=== PATIENT | female | born 1965 | race Caucasian/White ===

== ENCOUNTER 2016-09-28 17:31 | Emergency (ER) ==
[2016-09-28 17:59] LABS: MANUAL DIFF NEEDED? NO
[2016-09-28 18:01] LABS: BASO% 0.6 % (0.0-0.8); EOS# 0.14 X1000 (0.0-0.7); EOS% 2.7 % (0.0-10.0); HEMATOCRIT 38.5 % (37.0-47.0); HEMOGLOBIN 13.5 g/dL (12.0-16.0); LYMPH# 2.03 X1000 (1.2-3.4); MCH 29.3 PG (27-31); MCHC 35.1 g/dL (33-37); MCV 83.5 FL (81-99); MONO# 0.42 X1000 (0.11-0.59); MONO% 8.1 % (1.7-9.3); MPV 9.1 FL (7.4-10.4); NEUT% 49.6 % (42.2-75.2); PLT 259 X1000 (130-400); RBC 4.61 XMIL (4.2-5.4)
[2016-09-28 18:14] LABS: URINE CULTURE NEEDED? NO; URINE MICRO REVIEW NEEDED? NO; URINE SOURCE CLEAN CATCH
[2016-09-28 18:19] LABS: BILIRUBIN URINE NEGATIVE (NEGATIVE); BLOOD URINE NEGATIVE (NEGATIVE); COLOR STRAW; GLUCOSE URINE NEGATIVE (NEGATIVE); LEUKOCYTES URINE NEGATIVE (NEGATIVE); NITRITE URINE NEGATIVE (NEGATIVE); PH URINE 6.5; PROTEIN URINE NEGATIVE (NEGATIVE); TURBIDITY URINE CLEAR (CLEAR); UROBILINOGEN URINE NORMAL (NORMAL)
[2016-09-28 18:20] LABS: UR EPITHELIAL CELLS <10 /HPF (<10); URINE BACTERIA NEGATIVE /HPF; URINE RBC <10 /HPF (<10); URINE WBC <10 /HPF (<10)
[2016-09-28 18:32] LABS: AGAP 14; ALBUMIN 4.4 g/dL (3.5-5.0); ALKALINE PHOSPHATASE 92 U/L (32-104); AMYLASE 31 U/L (20-200); BUN 10 mg/dL (8-22); CALCIUM 9.2 mg/dL (8.8-10.2); CHLORIDE 102 mmol/L (98-107); COSMO 280; GOT 18 U/L (10-30); GPT 23 U/L (10-36); LIPASE 25 U/L (13-60); POTASSIUM 3.9 mmol/L (3.5-5.1); SODIUM 141 mmol/L (136-145); TCO2 25 mmol/L (25-35); TOTAL BILIRUBIN 0.39 mg/dL (0.20-1.00); TOTAL PROTEIN 7.3 g/dL (6.3-8.3)
--- NOTE | 2016-09-28 18:36 | PROVIDER DOCUMENTATION ---
HPI-Abdominal Pain/GI Problem - General Source: patient - History of Present Illness-ABD Nature of Presenting Problems: 50 year old F presents to the ED with a cc of RLQ ABD pain with an onset of this afternoon. Pt denies fever, chills, nausea, vomiting, or diarrhea. Abdominal Pain Onset Location: reports: RLQ Pain Radiation: reports: no radiation Quality of Pain: reports: aching Severity in ED: reports: moderate Onset/Duration: reports: this afternoon Timing: reports: still present Activities at Onset: reports: none Modifying Factors: improves with: nothing Bruising or Bleeding Gums?: No Similar Symptoms Previously?: No Recently seen or treated by another doctor?: No <Ann Pugh - Last Filed: 09/28/16 18:46> <Marimar Lopez - Last Filed: 09/28/16 22:08> - General Chief Complaint: Abdominal Pain Stated Complaint: LOWER RIGHT ABD PAIN Time Seen by Provider: 09/28/16 18:26 Allergies/Adverse Reactions: Patient Allergies Allergy/AdvReac Type Severity Reaction Status Date / Time No Known Allergies Allergy Verified 09/28/16 20:08 Home Medications: Home Medication List Medication Instructions Recorded Confirmed Last Taken Type Clonazepam 0.5 mg PO HS 06/02/16 09/28/16 09/27/16 History Trazodone [Desyrel] 50 mg PO QHS 06/02/16 09/28/16 09/27/16 History Phenytoin [Dilantin] 100 mg PO TID #90 capsule 07/24/16 09/28/16 2 Weeks Ago Rx Dicyclomine [Bentyl] 10 mg PO TID AC #30 capsule 09/28/16 Unknown Rx Famotidine [Pepcid] 20 mg PO DAILY #20 tablet 09/28/16 Unknown Rx Ondansetron Odt [Zofran 8Mg Odt] 8 mg PO Q8H PRN PRN #20 tablet 09/28/16 Unknown Rx Review of Systems - Adult - REVIEW OF SYSTEMS - ADULT Constitutional: denies: chills, fever Eyes: reports: no symptoms reported Ears, Nose, Mouth & Throat: reports: no symptoms reported Cardiovascular: denies: chest pain, orthopnea Respiratory: denies: cough, shortness of breath Gastrointestinal: reports: abdominal pain. denies: constipation, diarrhea, nausea, vomiting Genitourinary: denies: dysuria, hematuria Musculoskeletal: denies: back pain, muscle aches, muscle weakness Integumentary: denies: skin sores/ulcer, skin thickening Neurological: reports: no symptoms reported Psychiatric: reports: no symptoms reported Endocrine: reports: no symptoms reported Hematologic/Lymphatic: reports: no symptoms reported Allergic/Immunologic: reports: no symptoms reported All Other Systems: Reviewed and Negative <nAn Pugh - Last Filed: 09/28/16 18:46> Past History - Adult - PAST MEDICAL HISTORY-ADULT Review of Records: reports: Nursing Assessment Review, Medications Reviewed Major Childhood Illnesses: reports: denies history Cardiovascular: reports: A-Fib, HTN, heart valve problem (MVP) Respiratory: reports: denies history Gastrointestinal: reports: GERD Obstetrical/Gynecological: reports: denies history Genitourinary: reports: kidney stones Musculoskeletal: reports: denies history Neurological: reports: CVA (possible), Seizures/Epilepsy Psychiatric: reports: anxiety, depression Endocrine/Immune: reports: other (diffuse lymphadenopathy with suspected underlying malignant status post bone marrow biopsy) Other Conditions: reports: other (deep vein thrombosis) - PRIOR SURGERIES/PROCEDURES Surgical/Procedure History: reports: cholecystectomy (bladder sling; cardiac cath without stent; lumpectomy), hysterectomy, other (bladder sling; cardiac cath without stent) - IMMUNIZATION STATUS Childhood Immunizations: See Nurse Assessment Flu Vaccine: See Nurse Assessment - FAMILY HISTORY Family History: reviewed, not pertinent - SOCIAL HISTORY Smoking: non-smoker Substance Use: none/never Alcohol Use Frequency: never <Ann Pugh - Last Filed: 09/28/16 18:46> Physical Exam-General - PHYSICAL EXAM-ADULT Initial Vital Signs Reviewed: Yes - CONSTITUTIONAL General Appearance: appears well, alert, no apparent distress - RESPIRATORY Respiratory: chest non-tender, lungs clear, normal breath sounds - CARDIOVASCULAR Cardiovascular: normal peripheral pulses, regular rate, rhythm, no edema - GASTROINTESTINAL (ABDOMEN) Abdominal Exam: normal bowel sounds, soft, tenderness (RUQ), Boland's sign, obturator sign, other (negative heal tap) - MUSCULOSKELETAL Extremity: normal inspection - SKIN Integumentary: normal color, normal turgor, warm/dry - PSYCHIATRIC Psych/Mental Status: normal mood/affect, normal thought content, normal thought process, oriented x 3 <Ann Pugh - Last Filed: 09/28/16 18:46> Progress - EKG 1 Time of EKG reading by physician:: 17:44 EKG Read and Signed by:: Brooke Childers EKG Interpretation (*Must complete 3 of following elements*): Abnormal Rate: 122 Rhythm: sinus tachycardia ST Wave: non-specific ST changes <Ann Pugh - Last Filed: 09/28/16 18:46> - PLAN OF CARE/RESULTS Progress/Plan/Lab Results: Vital Signs Temp Pulse Resp BP Pulse Ox 09/28/16 17:37 98.5 F 137 H 18 185/123 100 No Known Allergies Allergy (Verified 09/28/16 20:08) Clonazepam 0.5 mg PO HS 06/02/16 Trazodone [Desyrel] 50 mg PO QHS 06/02/16 Phenytoin [Dilantin] 100 mg PO TID #90 capsule 07/24/16 I&O 09/27/16 09/28/16 09/29/16 06:59 06:59 06:59 Output Total 60 Balance -60 Laboratory 09/28/16 09/28/16 09/28/16 17:54 17:51 17:51 WBC 5.20 RBC 4.61 Hgb 13.5 Hct 38.5 MCV 83.5 MCH 29.3 MCHC 35.1 RDW Std Deviation 11.9 Plt Count 259 MPV 9.1 Immature Gran % (Auto) 0.0 Neut % (Auto) 49.6 Lymph % (Auto) 39.0 Christian % (Auto) 8.1 Eos % (Auto) 2.7 Baso % (Auto) 0.6 Immature Gran # (Auto) 0.00 Neut # (Auto) 2.58 Lymph # (Auto) 2.03 Christian # (Auto) 0.42 Eos # (Auto) 0.14 Baso # (Auto) 0.03 Sodium 141 Potassium 3.9 Chloride 102 Carbon Dioxide 25 Anion Gap 14 BUN 10 Creatinine 0.8 Estimated GFR/1.73 m2 > 60 BUN/Creatinine Ratio 13 Glucose 96 Calculated Osmolality 280 Calcium 9.2 Total Bilirubin 0.39 AST 18 ALT 23 Alkaline Phosphatase 92 Total Protein 7.3 Albumin 4.4 Globulin 2.9 Albumin/Globulin Ratio 1.5 Amylase 31 Lipase 25 Urine Source CLEAN CATCH Urine Color STRAW Urine Turbidity CLEAR Urine pH 6.5 Ur Specific [place] 1.010 Urine Protein NEGATIVE Ur Glucose (Stick) NEGATIVE Ur Ketones (Stick) NEGATIVE Urine Blood NEGATIVE Urine Nitrite NEGATIVE Urine Bilirubin NEGATIVE Urobilinogen Dipstick NORMAL Urine Leukocytes NEGATIVE Urine WBC (Auto) <10 Urine RBC (Auto) <10 U Epithel Cells (Auto) <10 Urine Bacteria (Auto) NEGATIVE Orders Category Date Time Status Saline Loc NOW Care 09/28/16 18:[address] ABD/PELVIS W/ IV CONT ONLY [CT] Stat Exams 09/28/16 18:46 Taken AMYLASE [CHEM] Stat Lab 09/28/16 17:51 Completed CBC WITH ELECTRONIC DIFF [HEME] Stat Lab 09/28/16 17:51 Completed COMPREHENSIVE METABOLIC PANEL [CHEM] Stat Lab 09/28/16 17:51 Completed LIPASE [CHEM] Stat Lab 09/28/16 17:51 Completed UA Reflex [URINALYSIS W/POSS RFLX CULT] [URINALYSIS] Lab 09/28/16 17:54 Completed Stat Morphine Med 09/28/16 20:18 Discontinued 4 mg IV NOW ONE Ondansetron [Zofran] Med 09/28/16 20:18 Discontinued 8 mg IV NOW ONE EKG [EKG] Stat Ther 09/28/16 17:40 Ordered - CT/MRI 1 CT Study: Abdomen, Pelvis Impression: Normal (Choleycystectomy. No bowel obstruction, no abscess, no inflammation about the cecum. Hysterectomy per Dr. Rea, radiology) <Marimar Lopez - Last Filed: 09/28/16 22:08> Departure <Ann Pugh - Last Filed: 09/28/16 18:46> - Departure Time of Disposition Order: 21:57 Certified Medical Emergency: Emergent <Marimar Lopez - Last Filed: 09/28/16 22:08> - Departure DIAGNOSIS: Abdominal pain Qualifiers: Abdominal location: right lower quadrant Qualified Code(s): R10.31 - Right lower quadrant pain Disposition: HOME 01 Condition: Stable Additional Instructions: Follow up with Dr. Bermudez, GI ED Follow Up Instructions: You have been treated by a care provider in the Emergency Department. These instructions are being provided to you so you can have an understanding of how to care for yourself upon discharge. Upon discharge from the Emergency Department, you are responsible for making arrangements for follow-up care by a physician of your choice. Take all prescribed medications as directed. Return to the Emergency Department immediately for any new or worsening symptoms. You may call the Physician Referral phone number at [phone] to obtain a list of Physicians who are taking new patients. Prescriptions: Dicyclomine [Bentyl] 10 mg PO TID AC #30 capsule Famotidine [Pepcid] 20 mg PO DAILY #20 tablet Ondansetron Odt [Zofran 8Mg Odt] 8 mg PO Q8H PRN PRN #20 tablet PRN Reason: Nausea Referrals: Uziel Holguin [Primary Care Provider] - Jamil Bermudez MD [STAFF PHYSICIAN] - Attestation - Scribe Verification/Attestation Scribe:: Ann Pugh Acting as Scribe for:: Marimar Lopez Scribe documention review:: This chart was documented by a scribe and accurately reflects the service the provider performed and the decisions made by the provider. <Ann Pugh - Last Filed: 09/28/16 18:46> Physician Attestation - Physician Attestation I, the provider, attest to the following statement:: Marimar Lopez Physician documentation Attestation:: This documentation recorded by the scribe accurately reflects the service I personally performed and the decisions made by me. <Ann Pugh - Last Filed: 09/28/16 18:46>
[2016-09-28] MEDS ORDERED: ZOFRAN IV ONE (20:18)
[2016-09-28] MEDS ORDERED: MORPHINE IV ONE (20:18)
[2016-09-28 22:19] VITALS: BP 119/85
--- NOTE | 2016-09-29 00:56 | Diag Imaging Result Document ---
PROCEDURE NAME: CT ABD/PELVIS W/ IV CONT ONLY - 09/28/2016 STUDY: CT abdomen and pelvis with intravenous contrast. COMPARISON: Compared to 04/08/2015. PROTOCOL: Dose reduction protocol. The gallbladder has been removed. There is mild fatty infiltration of the liver. There are several tiny hypodense hepatic lesions believed to be cysts. Normal spleen, pancreas, and adrenal glands. Normal enhancement of the kidneys. No hydronephrosis. Normal aorta. No bowel obstruction. I do not definitely identify the appendix. However, there are no inflammatory changes about the cecum. No abscess. No free air. The uterus has been removed. No adnexal mass. The urinary bladder is moderately distended and appears normal. IMPRESSION: 1. Cholecystectomy. 2. Mild fatty infiltration of the liver. 3. No inflammation about the cecum. No abscess. 4. No bowel obstruction. 5. Hysterectomy. A preliminary report was given at 9:47 p.m.
--- NOTE | 2016-09-29 07:43 | EKG Report ---
Test Performed on : 09/28/2016 5:44:21 PM Test Reason : elevated hr Blood Pressure : / mmHG Vent. Rate : 122 BPM Atrial Rate : 122 BPM P-R Int : 134 ms QRS Dur : 070 ms QT Int : 316 ms P-R-T Axes : 074 057 039 degrees QTc Int : 450 ms Sinus tachycardia. Nonspecific ST abnormality Abnormal ECG When compared with ECG of 24-JUL-2016 16:49, ST now depressed in Anterior leads Unconfirmed Result
== END 2016-09-28 22:19 | disposition home or self-care (01) ==
LOC: ED 17:31
DX: R10.31 Right lower quadrant pain (principal); K76.0 Fatty (change of) liver, not elsewhere classified; R94.31 Abnormal electrocardiogram [ECG] [EKG]; R10.811 Right upper quadrant abdominal tenderness; I10 Essential (primary) hypertension; R56.9 Unspecified convulsions; F41.9 Anxiety disorder, unspecified; F32.9 Major depressive disorder, single episode, unspecified; Z79.899 Other long term (current) drug therapy; Z87.442 Personal history of urinary calculi
CPT/HCPCS: 74177; 80053; 81001; 82150; 83690; 85025; 93005; J2270; J2405; Q9967

== ENCOUNTER 2019-11-22 19:36 | Observation (INO) ==
--- NOTE | 2019-11-22 20:16 | Diag Imaging Result Doc PS360 ---
EXAM: CT HEAD W/O CONTRAST HISTORY: dizziness, weakness TECHNIQUE: CT head without contrast COMPARISON: 04/18/2019 FINDINGS: No parenchymal hemorrhage. No epidural or subdural hematoma. No subarachnoid hemorrhage. No mass identified on this noncontrasted exam. No hydrocephalus. No sinus opacification. IMPRESSION: No hemorrhage. Negative brain CT without contrast. This exam was performed using automated exposure control, adjustment of mA or kV according to patient size, and/or use of iterative reconstruction technique. Electronically signed by Supa Rea 11/22/2019 8:13 PM
--- NOTE | 2019-11-22 20:16 | Diag Imaging Result Doc PS360 ---
EXAM: CHEST-2 VIEWS HISTORY: dizziness TECHNIQUE: Two views COMPARISON: 04/18/2019 FINDINGS: The lungs are well expanded. The heart is not enlarged. The vessels are not distended. There are no infiltrates. No pleural effusions. IMPRESSION: No acute abnormality. Electronically signed by Supa Rea 11/22/2019 8:14 PM
[2019-11-22 21:00] LABS: BASO# 0.07 X1000 (0.0-0.2); BASO% 1.1 % (0.0-0.8); EOS# 0.52 X1000 (0.0-0.7); EOS% 8.4 % (0.0-10.0); HEMATOCRIT 40.3 % (37.0-47.0); HEMOGLOBIN 13.3 g/dL (12.0-16.0); LYMPH# 2.36 X1000 (1.2-3.4); LYMPH% 38.1 % (20.5-51.1); MCH 27.5 PG (27-31); MCV 83.3 FL (81-99); MONO# 0.54 X1000 (0.11-0.59); MONO% 8.7 % (1.7-9.3); MPV 9.2 FL (7.4-10.4); NEUT% 43.7 % (42.2-75.2); PLT 288 X1000 (130-400); RBC 4.84 XMIL (4.2-5.4); RDW 12.8 % (11.5-14.5); WBC 6.19 X1000 (4.8-10.8)
[2019-11-22 21:05] LABS: ALB/GLOB RATIO 1.6; ALBUMIN 4.1 g/dL (3.5-5.0); CALCIUM 9.2 mg/dL (8.8-10.2); POTASSIUM 3.9 mmol/L (3.5-5.1); TOTAL BILIRUBIN 0.25 mg/dL (0.20-1.00); TOTAL PROTEIN 6.7 g/dL (6.3-8.3)
--- NOTE | 2019-11-22 22:09 | PROVIDER DOCUMENTATION ---
This chart was entered by Rachna Abdul Scribe, acting as scribe for Delmi Ferrari MD. HPI-General Adult - General Stated Complaint: HEADACH/CONFUSED/V Time Seen by Provider: 11/22/19 19:46 Source: patient Allergies/Adverse Reactions: Patient Allergies Allergy/AdvReac Type Severity Reaction Status Date / Time No Known Allergies Allergy Verified 04/18/19 14:19 Home Medications: Home Medication List Medication Instructions Recorded Confirmed Last Taken Type Clonazepam [Klonopin] 1 mg PO QHS 03/04/18 08/30/19 04/17/19 History Trazodone [Desyrel] 150 mg PO QHS 30 Days #30 tab 07/26/18 08/30/19 04/17/19 Rx Escitalopram Oxalate [Lexapro] 10 mg PO QHS 04/18/19 08/30/19 04/17/19 History Propranolol HCl 10 mg PO QAM 04/18/19 08/30/19 04/18/19 History Cyclobenzaprine [Flexeril] 10 mg PO TID #20 tab 08/30/19 Unknown Rx Ibuprofen [Motrin] 800 mg PO Q8H PRN PRN #20 tab 08/30/19 Unknown Rx - History of Present Illness -Gen Adult Nature of Presenting Problems: [id number] presents to ED with stroke-like 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 She states she has had a headache all day and has felt confused. Her told her she was disoriented and asking him questions; she does not remember doing this. She states she vomited, is dizzy, and was having difficulty walking in a straight line. She has a hx of HTN. She was slightly tearful upon exam. Severity: reports: mild Onset/Duration: reports: 1 hour ago Timing: reports: resolved prior to arrival Context/Activities at Onset: reports: light activity Modifying Factors: improves with: nothing Associated Symptoms: reports: dizziness, headaches, vomiting, trouble walking (patient states difficulty walking in a straight line) Similar Symptoms Previously?: No Recently seen or treated by another doctor?: No Review of Systems - Adult - REVIEW OF SYSTEMS - ADULT Constitutional: denies: chills, fever Cardiovascular: denies: chest pain, palpitations Respiratory: denies: cough, shortness of breath Gastrointestinal: reports: see HPI, vomiting. denies: abdominal pain Musculoskeletal: denies: back pain, neck pain Past History - Adult - PAST MEDICAL HISTORY-ADULT Review of Records: reports: Nursing Assessment Review, Medications Reviewed, Social history reviewed & non-contributory. Major Childhood Illnesses: reports: denies history Cardiovascular: reports: A-Fib, HTN, heart valve problem (MVP), hyperlipidemia Respiratory: reports: denies history Gastrointestinal: reports: GERD Obstetrical/Gynecological: reports: denies history Genitourinary: reports: kidney stones Musculoskeletal: reports: denies history Neurological: reports: CVA (possible), Seizures/Epilepsy Psychiatric: reports: anxiety, depression Endocrine/Immune: reports: other (diffuse lymphadenopathy with suspected underlying malignant status post bone marrow biopsy) Other Conditions: reports: other (deep vein thrombosis) - PRIOR SURGERIES/PROCEDURES Surgical/Procedure History: reports: cholecystectomy (bladder sling; cardiac cath without stent; lumpectomy), hysterectomy, breast (lumpectomy), other (bladder sling; cardiac cath without stent) - IMMUNIZATION STATUS Childhood Immunizations: See Nurse Assessment Flu Vaccine: See Nurse Assessment - FAMILY HISTORY Family History: reviewed, not pertinent - SOCIAL HISTORY Smoking: cigarettes, less than 1 pack/day Provider spent 3-5 mins advising pt. on dangers of tobacco.: Discussed manners to quit use, and f/u contacts for add'l counseling. Living Situation: family Physical Exam-General - PHYSICAL EXAM-ADULT Initial Vital Signs Reviewed: Yes - CONSTITUTIONAL General Appearance: appears well, alert, no apparent distress - EYES Eyes: PERRL/EOMI, pink conjunctivae - HEAD, EARS, NOSE, MOUTH & THROAT HENMT: normocephalic/atraumatic, moist mucous membranes, normal ENT inspection - NECK Neck: non-tender, full range of motion, supple, normal inspection - RESPIRATORY Respiratory: chest non-tender, lungs clear, normal breath sounds - CARDIOVASCULAR Cardiovascular: normal peripheral pulses, regular rate, rhythm, no edema, no gallop, no murmur - CHEST (BREASTS) Chest/Breast: deferred - GASTROINTESTINAL (ABDOMEN) Abdominal Exam: normal bowel sounds, non tender, soft. negative: guarding, rebound - GENITOURINARY Female Genitalia/Pelvic Exam: deferred Rectal Exam: deferred Hemoccult Exam: deferred - MUSCULOSKELETAL Back Exam: normal inspection Extremity: normal range of motion, non-tender, normal inspection, no pedal edema , no calf tenderness - SKIN Integumentary: normal color, normal turgor, warm/dry - NEUROLOGIC Neurologic: chief controller II-XII nml as tested, grossly normal - PSYCHIATRIC Psych/Mental Status: normal mood/affect, normal thought content, normal thought process, oriented x 3, tearful (slightly) Progress - PLAN OF CARE/RESULTS Progress/Plan/Lab Results: Orders Category Date Time Status CHEST-2 VIEWS [RAD] Stat Exams 11/22/19 19:[address] HEAD W/O CONTRAST [CT] Stat Exams 11/22/19 19:47 Ordered CBC WITH ELECTRONIC DIFF [HEME] Stat Lab 11/22/19 19:46 Uncollected CK PROFILE [SP CHEM] Stat Lab 11/22/19 19:46 Uncollected COMPREHENSIVE METABOLIC PANEL [CHEM] Stat Lab 11/22/19 19:47 Uncollected TROPONIN T HIGH SENSITIVITY Stat Lab 11/22/19 19:47 Uncollected Result Diagrams: 11/22/19 20:15 11/22/19 20:15 - REASSESSMENT Reassessment #1 Time Reassessed: 20:15 Status: other (NIH stroke scale score 2 at initial evaluation. Not a candidate for TPA due to minor and rapidly resolving symptoms.) Reassessment #2 Time Reassessed: 22:08 Status: improving - EKG 1 Time of EKG reading by physician:: 19:53 EKG Read and Signed by:: Delmi Ferrari EKG Interpretation (*Must complete 3 of following elements*): Abnormal Rate: 100 Rhythm: NSR Remer: normal QRS: normal ST Wave: non-specific ST changes - XRAY 1 XRAY: Bilateral XRAY Study: Chest Impression: See EMR Report (FINDINGS: The lungs are well expanded. The heart is not enlarged. The vessels are not distended. There are no infiltrates. No pleural effusions. IMPRESSION: No acute abnormality. Electronically signed by Supa Rea 11/22/2019 8:14 PM) - CT/MRI 1 CT Study: Head Impression: See EMR Report (FINDINGS: No parenchymal hemorrhage. No epidural or subdural hematoma. No subarachnoid hemorrhage. No mass identified on this noncontrasted exam. No hydrocephalus. No sinus opacification. IMPRESSION: No hemorrhage. Negative brain CT without contrast. This exam was performed using automated exposure control, adjustment of mA or kV according to patient size, and/or use of iterative reconstruction technique. Electronically signed by Supa Rea 11/22/2019 8:13 PM) - CONSULTS/PCP/HOSPITALIST Notification #1 *Consult/PCP/Hospitalist*: Dr. Valdez Time Discussed: 22:08 Consult Disposition: Admit Departure - Departure Date of Disposition Decision: 11/22/19 Time of Disposition Decision: 22:08 DIAGNOSIS: TIA (transient ischemic attack) Disposition: ADMITTED INPATIENT 09 Certified Medical Emergency: Emergent Condition: Stable Referrals and Follow-Ups: Uziel Holguin MD [Primary Care Provider] - - Critical Care Note This patient required my direct & personal management of CC.: No Attestation - Physician/ GLENN Attestation Patient care was provided by Advanced Practice Provider:: No The physician spent face to face time with patient:: Yes Advanced Practice Provider documentation review:: Supervising physician onsite and consulted in the evaluation and care of this patient. The physician did have a face to face encounter with the patient. This chart was documented by the indicated scribe, (Rachna Abdul Scribe) and accurately reflects the services I performed and decisions made by me, Delmi Ferrari MD, as attested by the provider's signature.
[2019-11-22] MEDS ORDERED: TYLENOL PO ONE (22:19)
--- NOTE | 2019-11-23 00:25 | HISTORY AND PHYSICAL ---
PRIMARY CARE PHYSICIAN: Uziel Holguin MD. REASON FOR ADMISSION: Transient confusion and ataxia. HISTORY OF PRESENT ILLNESS: Ms. Ann Mcmahon is a 54-year-old woman with past medical history of epilepsy, hypertension, questionable atrial fibrillation with prior CVAs, hyperlipidemia, GERD and DVT. She states that around 10 a.m. this morning she developed a dull bitemporal headache, right greater than left. She said later that afternoon the headache got a little worse and the next thing she remembered was that each time her asked her certain questions, she could not remember the answers to the questions. An hour or 2 later, she said was told by her that she was very confused for that period and could not answer questions and possibly had a right- sided droop. She said she tried to get up and noticed that she was drifting to her right side. Otherwise, she denies any motor deficits in her extremities. Denies any difficulty getting her words out or understanding questions. She was brought in because her was concerned that she may be having a stroke-like picture. She said since she has been in the ER, her mentation has improved and she denies any weakness. Only complains that the headache has persisted along with some photophobia and phonophobia. No visual symptoms. No flashing lights. No prior history of migraines. No head trauma. No neck stiffness or fever or chills. No GI or complaints. REVIEW OF SYSTEMS: Patient has a longstanding history of intermittent chest pain with sometimes shortness of breath, but states that her chest pains have not worsened in intensity, frequency, or duration. SOCIAL HISTORY: Smokes 1/2 packs a day. No alcohol or illicit drug use. Lives with her . FAMILY HISTORY: Patient denies any history of heart disease in first-degree relatives at this point in time. No history of migraines or stroke-like picture in first-degree relatives. SURGICAL HISTORY: Cholecystectomy, bladder sling, heart catheterization without stent placement, breast lumpectomy, and hysterectomy. LAB WORK: BUN 9, creatinine 1.0. Troponin negative. Glucose 99. CK negative. White count 6000, hemoglobin and hematocrit 13 and 40, platelets 288,000 with normal differential. IMAGIN. Chest film, no acute abnormality. 2. CT head no acute intracranial findings. PHYSICAL EXAMINATION: VITAL SIGNS: Blood pressure is 165/107, heart rate 107, respiratory rate 20, temperature is 98.6, saturation 97% on room air. GENERAL: She is an obese, pleasant, middle-aged white female in acute distress. AAO x3. Normal mood and affect. HEENT: Head is normocephalic, atraumatic. Eyes: DEMETRIUS, EOMI. She is anicteric and not pale. Cranial nerves 2-12 are grossly intact. No pronator drift. No focal motor deficits. No sensory deficits. ENT: Oropharyngeal exam is grossly normal. Some cyanosis. NECK: Supple. No JVD or carotid bruit. No thyromegaly. CHEST: Clear when auscultated with good entry both lung carranza. CARDIOVASCULAR SYSTEM: First and second heart sounds heard. No gallops, rubs. Rhythm is regular. ABDOMEN: Protuberant, soft. No tenderness or organomegaly. Bowel sounds normal. RECTAL: Deferred at this time. EXTREMITIES: Good distal pulse volumes, regular, symmetrical. No edema, clubbing or peripheral cyanosis. NEUROLOGICAL: See above. SKIN: Intact. No breakdown, lesion, erythema. MUSCULOSKELETAL: Grossly normal. ASSESSMENT: 1. Cerebrovascular accident versus hypertensive encephalopathy. 2. Hypertension. 3. Questionable history of atrial fibrillation. 4. Seizures. PLAN: Patient will be admitted. Extensive stroke workup will be done. The patient with clinical presentation and risk factors. Counseled patient to quit smoking and she said she will try to think about quitting. Will consult Neurology. At this point in time, start patient on aspirin and a statin pending workup. It is possible that this could all very well be new onset migraines versus hypertensive encephalopathy, but pending redo imaging studies, a stroke/TIA cannot be ruled out definitively. EKG is pending at this time and needs to be reviewed when done. cc: MD Uziel Figueredo MD
[2019-11-23] MEDS ORDERED: LIPITOR PO SCH (01:02)
[2019-11-23] MEDS ORDERED: KLONOPIN PO SCH (01:02)
[2019-11-23] MEDS ORDERED: LOVENOX SUBQ SCH (01:02)
[2019-11-23] MEDS ORDERED: NS 1,000 ML IV SCH (01:02)
[2019-11-23] MEDS ORDERED: FIORICET PO PRN (01:02)
[2019-11-23] MEDS ORDERED: INDERAL PO SCH (01:02)
[2019-11-23] MEDS ORDERED: ZOFRAN IV PRN (01:02)
--- NOTE | 2019-11-23 01:25 | EKG Report ---
Test Performed on : 11/22/2019 10:06:20 PM Test Reason : cp Blood Pressure : / mmHG Vent. Rate : 099 BPM Atrial Rate : 099 BPM P-R Int : 148 ms QRS Dur : 062 ms QT Int : 346 ms P-R-T Axes : 044 014 024 degrees QTc Int : 444 ms Normal sinus rhythm. Normal ECG When compared with ECG of 22-NOV-2019 19:50, (Unconfirmed) No significant change was found Unconfirmed Result
[2019-11-23] MEDS ORDERED: ASPIRIN PO SCH (09:00)
--- NOTE | 2019-11-23 09:27 | EKG Report ---
Test Performed on : 11/22/2019 7:50:45 PM Test Reason : ED. No order in [place] Blood Pressure : / mmHG Vent. Rate : 100 BPM Atrial Rate : 100 BPM P-R Int : 162 ms QRS Dur : 068 ms QT Int : 338 ms P-R-T Axes : 043 014 025 degrees QTc Int : 436 ms Normal sinus rhythm. Nonspecific ST and T wave abnormality Abnormal ECG When compared with ECG of 18-APR-2019 12:26, Sinus rhythm. has replaced Junctional rhythm. Unconfirmed Result
[2019-11-23 09:43] LABS: AGAP 7; BUN 9 mg/dL (8-22); CALCIUM 8.8 mg/dL (8.8-10.2); CHLORIDE 102 mmol/L (98-107); COSMO 274; CREATININE 0.8 mg/dL (0.5-0.9); ESTIMATED GFR > 60; GLUCOSE 117 mg/dL (70-104); POTASSIUM 4.2 mmol/L (3.5-5.1); SODIUM 137 mmol/L (136-145); TCO2 28 mmol/L (25-35)
--- NOTE | 2019-11-23 10:32 | Diag Imaging Result Doc PS360 ---
EXAM: MRI BRAIN W/WO CONTRAST 11/23/2019 HISTORY: stroke TECHNIQUE: T1 sagittal, axial and post gadolinium-enhanced axial with coronal reformation, axial T2, FLAIR, DWI and coronal gradient echo. COMMENT: There is no mass effect, evidence of bleed, or abnormal extra-axial fluid collection. There is no evidence of restricted diffusion. No abnormal gadolinium enhancement is present. IMPRESSION: No evidence of acute intracranial disease. Electronically signed by Tiago Sue 11/23/2019 10:29 AM
--- NOTE | 2019-11-23 10:35 | Diag Imaging Result Doc PS360 ---
EXAM: MRA BRAIN W/O CONTRAST HISTORY: stroke TECHNIQUE: MR angiography of debris. MIP images obtained. COMPARISON: MRI brain FINDINGS: Normal flow within each distal internal carotid artery. Normal flow in the anterior and middle cerebral arteries. No occlusions or stenosis. Normal flow in the basilar artery and posterior cerebral arteries. There are bilateral posterior communicating arteries. The one on the right primarily supplies the posterior cerebral artery. No aneurysm. IMPRESSION: No occlusion or stenosis. Electronically signed by Supa Rea 11/23/2019 10:33 AM
[2019-11-23 11:00] VITALS: BP 127/77
[2019-11-23] MEDS ORDERED: TRILEPTAL PO ONE (11:26)
--- NOTE | 2019-11-23 12:35 | NEUROLOGY CONSULTATION ---
DATE: 11/23/2019 HISTORY OF PRESENT ILLNESS: Ms. Mcmahon is 54 years old, and there is report of recent altered mental state. She reports not being aware of all the problems reported on admission and she cannot provide first-hand history of those. She reports being aware that she had worse than usual headache. She does recall asking her questions, but she reports she does not recall being unable to answer questions correctly except for one occasion when she remembers he asked her to state the year, and she replied 1981 and then began to cry. She reports she was not aware of right-sided weakness or other focal neurologic problem. The admission history includes report from that she seemed confused and seemed unable to answer questions. On admission, there was not documented focal neurologic deficit. She has a past history of seizures. Often, these have been easily attributed to benzodiazepine withdrawal. At other times, she has had seizures without clear benzodiazepine association. She told me that she has been having some staring spells reported by and she is generally not aware that these episodes occur. She is not able to provide detailed history of features, frequency, duration of episodes. I have seen her on several occasions in the past. When I last saw her in March,, recommendation was to continue with oxcarbazepine because she had some problems tolerating levetiracetam. Her report today is that she did not fill oxcarbazepine prescription because she could not afford the medication. However, she was able to afford her cigarettes, clonazepam, trazodone, and blood pressure medicine. She has generally not followed through with plans for follow-up in my office. She missed her last appointment scheduled shortly after her most recent hospital discharge. Last oxcarbazepine dose was 600 mg b.i.d. There is reported past history of dyslipidemia, hypertension, GERD, and possibly DVT. She smokes cigarettes as above. CBC and chemistry profile were unremarkable. We did not get urine drug screen on admission. Noncontrast CT of the head was unremarkable. Brain MRI done with and without contrast and brain MRA done this morning are both unremarkable. She has been afebrile here. Systolic blood pressures were 140s-160s initially and 90s-120s recently. Heart rate was initially 90s, recently 60s-80s. PHYSICAL EXAMINATION: On exam, Ms. Mcmahon is awake, alert, attentive, and appropriate. Speech is not dysarthric. Language function is intact on brief bedside testing. Remote memory is good. I did not test her cognitive function thoroughly. Head and neck are unremarkable. There is no meningismus. Visual carranza are full to confrontational finger counting. Extraocular movements are full vertically and horizontally. Facial sensation and motility are normal and symmetric. Gag is intact. Tongue is midline. She can hear. Shoulder shrug is equal. Strength is normal in the arms and legs. Limb tone is symmetric. She did well on [id number] testing bilaterally. She reports good pinprick appreciation over the limbs. I did not test her gait. IMPRESSION: Possible recent period of altered awareness associated with headache. This could have been transient confusional migraine, could have been transient apparent confusion associated with partial seizures, could have been medication effect. She told me that she has continued clonazepam without missing doses recently, but relative clonazepam withdrawal might be associated with some of her symptoms. In light of her past history of partial seizures, I have suggested that she resume oxcarbazepine. I will order that 300 mg initial dose and then 600 mg b.i.d. as she has tolerated before. I do not have any other suggestion right now. I do not think EEG would change her management today. I strongly encouraged her to take her medications as directed and to keep followup with her doctors. I, again, offered to see her as an outpatient. Thank you for asking Neurology to see Ms. Mcmahon. cc: Tiffanie Leonard III, MD [facility]
--- NOTE | 2019-11-23 14:27 | DISCHARGE SUMMARY ---
ADMISSION DATE: 11/22/2019 DISCHARGE DATE: 11/23/2019 PRIMARY CARE PROVIDER: Dr. Uziel Holguin. PRIMARY PROCEDURES: Head CT negative. Brain MRA: No occlusion or stenosis. Brain MRA: No evidence of acute intracranial disease. CONSULTATIONS: Dr. Leonard with Neurology. DISCHARGE DIAGNOSES: 1. Cerebrovascular accident rule out versus hypertensive encephalopathy. Followed by Neurology. Neuro workup has been negative. Dr. Leonard suggests she resumes her oxcarbazepine given her history of partial seizures. He ordered 300 mg initial dose and 600 mg b.i.d. No further suggestions. He offered to follow up with her as an outpatient. 2. Hypertension. 3. Questionable history of atrial fibrillation. 4. Seizures. HOSPITAL COURSE: Briefly, Ms. Mcmahon is a 54-year-old female with past medical history of epilepsy, hypertension, questionable atrial fibrillation with prior CVAs, hyperlipidemia, GERD, DVT, who around 10 a.m. developed some dull bitemporal headache, right greater than left. Headache continued to worsen. She started feeling confused at some point and was brought into the ED by her for concern of stroke. Her mentation had improved. There was no weaknesses noted. She had a full neurological workup and has been evaluated by Neurology who recommend that she start her oxcarbazepine back given her history of partial seizures with no further recommendation and offered to follow up with her as an outpatient. VITAL SIGNS: At time of discharge, temperature is 98.3 degrees, heart rate 69, respirations 16, blood pressure 127/77, O2 is 93% on room air. DISCHARGE DIET: Healthy heart. DISCHARGE MEDICATIONS: 1. Klonopin 1 mg p.o. at bedtime. 2. Lexapro 10 mg p.o. at bedtime. 3. Propranolol 10 mg p.o. q.a.m. 4. Trazodone 150 mg p.o. at bedtime. 5. Aspirin 325 mg p.o. daily. 6. Oxcarbazepine 600 mg p.o. b.i.d. FOLLOW-UP: Ms. Mcmahon is being discharged back home with self care. She will follow up with her primary care provider Dr. Uziel Holguin and Dr. Leonard. She is to take all medications as prescribed. She can return to the ED or call 911 for any worsening of symptoms. Dictated by BRIGITTE Rivera for Daniel Lake MD cc: MD Uziel Miller MD
[2019-11-23] MEDS ORDERED: LEXAPRO PO SCH (21:00)
[2019-11-23] MEDS ORDERED: TRILEPTAL PO SCH (21:00)
[2019-11-23] MEDS ORDERED: DESYREL PO SCH (21:00)
--- NOTE | 2019-11-23 22:52 | ECHO REPORT ---
ORDER DATE: 11/23/2019 INDICATION: Stroke. REQUESTING PHYSICIAN: Dr. Valdez, hospitalist. M-MODE MEASUREMENTS: Left ventricle end diastole: 4.9. Left ventricle end systole: 3.4. Posterior wall: 0.8. Interventricular septum: 0.8. Left atrium: 3.6. Aortic diameter: 3.2. SUMMARY OF 2-DIMENSIONAL IMAGIN. Left ventricular function is normal. Ejection fraction is 59%. There is no wall motion abnormality noted, 2. The right ventricle appears to be normal. 3. The aortic valve is normal. 4. The mitral valve looks grossly normal. Color flow mapping of the mitral valve shows a moderate degree of regurgitation. 5. Pulse wave Doppler of mitral inflow shows mild reversal of the E/A ratio. The ratio is 0.8. 6. Tissue Doppler of septal and lateral mitral annulus averages 11 cm. There is no diastolic dysfunction. 7. The pulmonic valve is normal. There is a mild degree of regurgitation. 8. The tricuspid valve shows a mild to moderate degree of regurgitation. Pulmonary systolic pressure is estimated at 48 mmHg. 9. The aortic valve has 3 cusps. They open normally. Color flow mapping unremarkable. 10.There is no pericardial effusion, no mass, and no thrombus. 11.The left atrium is not dilated. Clinical correlation recommended. cc: MD Mary Jane Devine MD
== END 2019-11-23 16:02 | disposition home or self-care (01) | DRG 77 ==
LOC: ED 19:36 → SUATTDRO 19:37 → INTOOBSV 19:37 → 3N 11-23 00:51
PROVIDERS: ATTEND Internal Medicine